=== PATIENT | female | born 1970 | race Caucasian/White ===

== ENCOUNTER 2022-05-25 07:00 | Outpatient (NON) | payer OTHER, SELFPAY | END 2022-05-25 07:01 | disposition home or self-care (01) | LOC: ANHLAB 05-26 11:23 | PROVIDERS: PCP Family Medicine; Visit Provider Internal Medicine Gastroenterology | DX: Z12.11 Encounter for screening for malignant neoplasm of colon (principal) | CPT/HCPCS: 88305 ==

== ENCOUNTER 2022-05-25 08:11 | Day surgery (SDC) | payer OTHER, SELFPAY ==
[2022-03-12 10:29] VITALS: BMI 26.6
[2022-05-12 09:10] VITALS: BMI 25.0
--- NOTE | 2022-05-22 12:41 | WPDANESEPPF ---
Anes - Initial Pre Proc Eval Procedure: Operation Date: 05/25/22 10:00 Proposed Procedures p Screening Colonoscopy - Joey Hutchison MD Date/Time: 05/22/22 12:41 Surgeon: Joey Hutchison MD Pre Op Diagnosis: Neoplasm Screening Patient Data Age: 51 Gender: F Height: 1.63 m Weight: 66 kg Allergies Allergy/AdvReac Type Severity Reaction Status Date / Time bee venom protein (honey bee) Allergy Unknown Unknown Verified 05/25/22 08:36 Home Medications Medication Instructions Recorded Confirmed Type simvastatin 10 mg tablet 10 mg PO DAILY #90 tabs 03/12/22 05/25/22 Rx Patient hx anesthesia problems: none Family hx anesthesia problems: none Results Review: All pre-operative results and documents have been reviewed as part of the pre-operative evaluation. [facility] Past Medical History Medical History (Updated 05/22/22 @ 12:42 by Soren Phan DO) Hyperlipemia Family History Family History (Reviewed 05/08/22 @ 09:26 by Tayler Guerrero [facility]) Father Alcoholism Diabetes mellitus Mother Diabetes mellitus Hypertension Heart disease Sibling Hypertension Heart disease Grandparent Diabetes mellitus Hypertension Cancer Social History Social History (Updated 05/08/22 @ 09:31 by Tracey Girard [facility]) Smoking status: Never smoker Alcohol intake: never Substance use: never Substance use type: does not use Lack of Transportation: No Lack of Food: Never True Current Housing: I Have Housing Concerned About Future Housing: No Difficulty Paying Gas/Electric Bills: No Difficulty Paying for Meds: No Currently Unemployed: No Education: High School Diploma/GED Difficulty w/ Childcare or Family Care: No Living arrangements: alone Additional living arrangements comments: Mother Occupation/Education: occupation Gender identity (if verbalized by the patient): Female Spiritual care concerns: No Agree to blood products: Yes Anes - Eval Final PreProcedure Day of Procedure 05/22/22 12:41 Patient weight: normal Heart: regular rate and rhythm Lungs: clear to auscultation and normal air movement Airway: Mallampati scale class II Neurological: alert and oriented Last oral intake: >/= 8 hours ASA classification: II Emergent: no Anesthetic plan: proceed Anesthesia type and monitoring: general GIVS and standard monitoring Results Review: All pre-operative results and documents have been reviewed as part of the pre-operative evaluation. Informed Consent: The patient's anesthetic plan and its attendant risks and benefits were discussed with the patient/family/POA. Questions were solicited and answers provided to the satisfaction of the patient/family/POA.
[2022-05-25 08:30] VITALS: BP 132/97; PULSE 90; RESP 16; TEMP 36.6; O2SAT 100
[2022-05-25] MEDS: LACTATED RINGERS 1,000 ML 150 ML IV CONT (08:44)
--- NOTE | 2022-05-25 09:39 | PM.HPGS ---
History of Present Illness History of Present Illness Consent: Risks, benefits, and alternatives have been discussed and questions answered. Patient agrees to proceed with procedure. Chief complaint: Neoplasm Screening Narrative: Samanta Torre is a 51 year old female here for screening colonoscopy, had one in her 20's for another reason Review of Systems Constitutional: Constitutional: Denies headache(s) and Denies weakness Eyes: Eyes: Denies blurry vision ENT: Reports Normal hearing present, Denies headache(s) and Denies neck pain Cardiovascular: Cardiovascular: Denies chest pain and Denies dyspnea Respiratory: Respiratory: Denies dyspnea Gastrointestinal: Gastrointestinal: Reports no additional gastrointestinal complaints Genitourinary: Genitourinary: Denies dysuria Musculoskeletal: Musculoskeletal: Denies neck pain Integumentary/Breasts: Skin/Breast: Denies dry skin Neurologic: Reports Normal hearing present, Denies headache(s) and Denies weakness Psychiatric: Psychiatric: Denies anxiety Endocrine: Endocrine: Denies change in body appearance Hematologic/Lymphatic: Hematologic/Lymphatic: Denies easy bleeding Allergic/Immunologic: Allergic/Immunologic: Denies urticaria PMFSH Past Medical History Medical History (Updated 05/22/22 @ 12:42 by Soren Phan DO) Hyperlipemia Family History Family History Father Alcoholism Diabetes mellitus Mother Diabetes mellitus Hypertension Heart disease Sibling Hypertension Heart disease Grandparent Diabetes mellitus Hypertension Cancer Social History Social History (Updated 05/08/22 @ 09:31 by Tracey Girard [facility]) Smoking status: Never smoker Alcohol intake: never Substance use: never Substance use type: does not use Lack of Transportation: No Lack of Food: Never True Current Housing: I Have Housing Concerned About Future Housing: No Difficulty Paying Gas/Electric Bills: No Difficulty Paying for Meds: No Currently Unemployed: No Education: High School Diploma/GED Difficulty w/ Childcare or Family Care: No Living arrangements: alone Additional living arrangements comments: Mother Occupation/Education: occupation Gender identity (if verbalized by the patient): Female Spiritual care concerns: No Agree to blood products: Yes Meds Home Medications and Allergies Home Medications Medication Instructions Recorded Confirmed Type simvastatin 10 mg tablet 10 mg PO DAILY #90 tabs 03/12/22 05/25/22 Rx Allergies Allergy/AdvReac Type Severity Reaction Status Date / Time bee venom protein (honey bee) Allergy Unknown Unknown Verified 05/25/22 08:36 Vital Signs Vital Signs - 24 hr 05/25/22 08:30 Temperature 97.9 F Pulse Rate 90 Respiratory Rate 16 Blood Pressure 132/97 H Pulse Oximetry 100 Oxygen Delivery Room Air Exam Const: General: comfortable and no acute distress HENMT: Face/Nose/Sinus: Normal nares present Eyes: General: appearance normal, both eyes and all related structures Neck: Neck: no JVD Resp: Auscultation: clear to auscultation bilaterally Cardio: Rate: regular rate Rhythm: regular rhythm GI: Inspection: non-distended GI Palp: Yes Soft to palpation Skin: General skin exam: normal color Neuro: General: gait normal Speech: normal speech Extrem: General: normal to inspection Psych: Mental Status: mental status grossly normal Assessment and Plan Assessment and plan (1) Encounter for screening colonoscopy: Code(s): Z12.11 - Encounter for screening for malignant neoplasm of colon Status: Acute Assessment and Plan: colonoscopy
[2022-05-25 09:55] VITALS: BP 100/74; PULSE 92; RESP 16; O2SAT 100
[2022-05-25 10:05] VITALS: BP 121/92; PULSE 80; RESP 16; O2SAT 99
[2022-05-25 10:15] VITALS: BP 124/98; PULSE 78; RESP 18; O2SAT 99
--- NOTE | 2022-05-25 10:26 | SUR.PHASEII ---
PT AWAKE AND ALERT. FAMILY AT BEDSIDE. TALKATIVE. DRINKING AND EATING. DENIES PAIN. READY TO GO HOME.
--- NOTE | 2022-05-25 12:53 | WPDANESPN ---
Anes - Prog Note Post-Op Date/Time: 05/25/22 12:53 Cardiovascular status: normal Respiratory status: normal Airway patency: baseline Mental status: baseline Post-Op hydration status: normal Vital Signs: Last Vital Signs Temp 36.6 C 05/25/22 08:30 Pulse 78 05/25/22 10:15 Resp 18 05/25/22 10:15 BP 124/98 H 05/25/22 10:15 Pulse Ox 99 05/25/22 10:15 O2 Del Method Room Air 05/25/22 10:15 Pain Score (VAS): 0 I/O: Intake & Output 05/24/22 05/25/22 05/25/22 23:59 07:59 15:59 Intake Total 500 Balance 500 Post-procedural complaints: none Patient Feedback: Patient satisfied with anesthetic care. Other Findings: Patient vital signs back to baseline. Patient denies nausea and vomiting. Patient's pain under control. Patient OK for discharge.
== END 2022-05-25 10:29 | disposition home or self-care (01) ==
PROVIDERS: PCP Family Medicine; Visit Provider Internal Medicine Gastroenterology
PROC: 0DJD8ZZ Inspection of Lower Intestinal Tract, Via Natural or Artificial Opening Endoscopic (ICD-10-PCS; CPT 45378; principal; 2022-05-25 10:00)
DX: Z12.11 Encounter for screening for malignant neoplasm of colon (principal)
CPT/HCPCS: 45385

== ENCOUNTER 2025-04-17 10:05 | Outpatient (CLI) | payer OTHER, SELFPAY ==
--- NOTE | ~2025-04-17 | US_ITS ---
EXAMINATION: US soft tissue LE LT, 04/17/2025 10:06 [employer] HISTORY: R22.42 - Localized swelling, mass and lump, left lower limb Comparison: None Technique: Irwin-scale and color Doppler images were obtained. Findings: Correlating with the palpable area within the subcutaneous tissues there is a solid focus measuring 1.6 x 1.7 x 0.8 cm without abnormal flow. IMPRESSION: Probable lipoma. 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
== END 2025-04-17 10:06 | disposition home or self-care (01) ==
LOC: GOSHIMG 10:05
PROVIDERS: PCP Family Medicine; Visit Provider Family Medicine
DX: R22.42 Localized swelling, mass and lump, left lower limb (principal)
CPT/HCPCS: 76882